=== PATIENT | female | born 1985 | race African-American/Black ===

== ENCOUNTER 2019-10-21 14:28 | Emergency (ER) | payer MEDICAID, OTHER ==
[~2019-10-21] VITALS: Ht 162.6 cm; Wt 99.8 kg
--- NOTE | 2019-10-21 15:00 | NUR ---
ED Nurse Note: cough x 2 weeks. some green phlegm per pt. no dyspnea. no fever
--- NOTE | 2019-10-21 15:05 | NUR ---
ED Nurse Note: pt refused to give urine sample ermd aware
--- NOTE | 2019-10-21 15:15 | NUR ---
ED Nurse Note: pt taken to xray
[2019-10-21 15:17] VITALS: BP 122/79
--- NOTE | 2019-10-21 15:28 | Diagnostic Imaging Report ---
Indication: Dyspnea Comparison: None A single view chest radiograph was obtained. Findings: Cardiomediastinal appearance is within normal limits for age. The lungs are clear. Pulmonary vascularity is appropriate. The diaphragmatic contour is smooth and costophrenic angles are sharp. No pleural effusions are identified. The bones are unremarkable. Impression: No acute findings
--- NOTE | 2019-10-21 15:30 | NUR ---
ED Nurse Note: pt states shes on her menstrual cycle and doesnt feel comfortable giving urine
[2019-10-21] MEDS ORDERED: ZYRTEC-D TABLE1 EACH ORAL (15:32)
[2019-10-21] MEDS ORDERED: PROMETHAZINE-D118 ML ORAL (15:32)
--- NOTE | 2019-10-21 15:55 | Emergency Room Report ---
History of Present Illness General Chief Complaint: Upper Respiratory Illness Source: Patient Present Illness HPI 33-year-old female presents with cough for 2 days. Patient also reports sneezing and nasal congestion. Denies any fever, sore throat, vomiting, diarrhea, chest pain, shortness of breath. No past medical history. No medications taken. Patient did receive the flu shot this year. Allergies: Coded Allergies: No Known Allergies (Unverified , 10/21/19) Patient History Past Medical History: see triage record Last Menstrual Period: now Now: No Reviewed Nursing Documentation: PMH: Agreed; PSxH: Agreed Nursing Documentation-PMH Past Medical History: No Stated History Review of Systems All Other Systems: negative except mentioned in HPI Physical Exam Vital Signs Date Time Temp Pulse Resp B/P (MAP) Pulse Ox O2 Delivery O2 Flow Rate FiO2 10/21/19 14:55 99.3 95 20 122/79 (93) 96 Room Air Sp02 EP Interpretation: reviewed, normal General Appearance: normal inspection, well appearing, no apparent distress, alert, GCS 15, non-toxic ENT: EOM grossly intact, normal pharynx, normal voice, TMs + canals normal, uvula midline Neck: normal inspection, full range of motion, supple, thyroid normal, no meningismus, no bony tend Respiratory: chest non-tender, lungs clear, normal breath sounds, no respiratory distress Cardiovascular #1: normal peripheral pulses, regular rate, rhythm Gastrointestinal: normal inspection, normal bowel sounds, non tender, soft, no mass, no organomegaly, no guarding, no rebound Musculoskeletal: normal inspection, normal range of motion, no calf tenderness , gait/station normal, non-tender Neurologic: alert, motor strength/tone normal, 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 Tavares is my supervising physician whom patient management and care has been discussed with. Diagnostic Impression: Primary Impression: Upper respiratory infection Qualified Codes: J06.9 - Acute upper respiratory infection, unspecified Additional Impression: Cough ER Course Pt. presents to the ED c/o cough, nasal congestion sneezing for 2 days. No fever or other symptoms. Ddx considered but are not limited to viral URI, influenza, pneumonia, bronchitis, asthma, allergies. Vital signs: are WNL, pt. is afebrile H&PE are most consistent with viral URI, allergic rhinitis. ORDERS: none required at this time, the diagnosis is clinical ED INTERVENTIONS: None required at this time. DISCHARGE: At this time pt. is stable for d/c to home. Will provide printed patient care instructions, and prescriptions for cough syrup and decongestants. Care plan and follow up instructions have been discussed with the patient prior to discharge. Last Vital Signs Date Time Temp Pulse Resp B/P (MAP) Pulse Ox O2 Delivery O2 Flow Rate FiO2 10/21/19 15:17 95 20 Room Air 10/21/19 15:17 99.3 122/79 96 Disposition: HOME, SELF-CARE Condition: Stable Scripts Cetirizine Hcl/Pseudoephedrine (ZYRTEC-D TABLET) 1 Each Tab.er.12h 1 EACH ORAL DAILY, #15 TAB Prov: Ellyn Valle N. P.A. 10/21/19 D-Methorphan Hb/Prometh Hcl* (PROMETHAZINE-DM SYRUP*) 118 Ml Syrup 5 ML ORAL Q4H PRN for For Cough, #120 ML 0 Refills Prov: Ellyn Valle N. P.A. 10/21/19 Patient Instructions: Upper Respiratory Infection, Adult Additional Instructions: Take medications as directed. Follow up with a Primary Care Provider in 3-5 days, even if your symptoms have resolved. --Please review list of primary care clinics, if you do not already have a primary care provider Return sooner to ED if new symptoms occur, or current symptoms become worse. - Please note that this Emergency Department Report was dictated using [employer]ra[employer] worker technology software, occasionally this can lead to erroneous entry secondary to interpretation by the dictation equipment. Ellyn Valle Oct 21, 2019 15:55
[2019-10-21 16:00] VITALS: BP 126/84
--- NOTE | 2019-10-21 16:01 | NUR ---
ER DISCHARGE NOTE: Patient is cleared to be discharged per ERMD, pt is aox4, on room air, with stable vital signs. pt was given dc and prescription instructions, pt was able to verbalize understanding, pt id band removed. pt is able to ambulate with steady gait. pt took all belongings.
== END 2019-10-21 16:00 | disposition home or self-care (01) ==
LOC: EMR 14:55
DX: J06.9 Acute upper respiratory infection, unspecified (principal); R05 Cough
CPT/HCPCS: 71045; Z7502; 99283

== ENCOUNTER 2020-03-11 18:20 | Emergency (ER) | payer MEDICAID, OTHER ==
[~2020-03-11] VITALS: Ht 162.6 cm; Wt 99.3 kg
[~2020-03-11 18:20] MED LIST: PROMETHAZINE-D118 ML ORAL; ZYRTEC-D TABLE1 EACH ORAL
[2020-03-11 19:08] VITALS: BP 131/80
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
[2020-03-11] MEDS ORDERED: MUPIROCIN22 GM TOPIC (20:29)
[2020-03-11] MEDS ORDERED: IBUPROFEN600 M1 ORAL (20:29)
[2020-03-11] MEDS ORDERED: ROBAXIN-500MG ORAL (20:29)
[2020-03-11 20:40] VITALS: BP 125/86
--- NOTE | 2020-03-12 13:05 | Diagnostic Imaging Report ---
Indications: Pain, trauma Technique: Two views of the left forearm Comparison: None Findings: No acute fractures. No dislocations. The joint spaces are preserved. There is ulnar minus variance incidentally noted Impression: Negative
== END 2020-03-11 20:40 | disposition home or self-care (01) ==
LOC: EMR 18:54
DX: S50.12XA Contusion of left forearm, initial encounter (principal); S30.1XXA Contusion of abdominal wall, initial encounter; S60.511A Abrasion of right hand, initial encounter; V43.52XA Car driver injured in collision with other type car in traffic accident, initial encounter; Y92.410 Unspecified street and highway as the place of occurrence of the external cause
CPT/HCPCS: 71250; 73090; 74176; Z7502; 99284